=== PATIENT | female | born 1940 | race Caucasian/White ===

== ENCOUNTER 2016-11-06 15:51 | Inpatient (IN) | payer OTHER, MEDICARE ==
[~2016-11-06] VITALS: Ht 162.6 cm; Wt 112.9 kg
[~2016-11-06 15:51] MED LIST: ACAR25TA PO; ASPI-232 PO; ASPI1TAB4 PO; ATOR-22 PO; CHOL1CAP57 PO; CRAN1TAB6 PO; CTP1X PO; DOCU100C PO; FURO40TA3 PO; GLIM1TAB2 PO; GLUCTAB7 PO; LEVO1TAB PO; NRN/300 PO; POTA75TA2 PO; RANI1TAB77 PO; SITA50TA5 PO
[2016-11-06] MEDS ORDERED: ACETAMINOPHEN 500 MG TAB PO STA (16:00)
--- NOTE | 2016-11-06 16:07 | EMERGENCY ROOM VISIT NOTE ---
History Report prepared by Simon: Kingston Hays Under the Supervision of: Dr. Ben Pardo M.D. First contact with patient: 15:57 Chief Complaint: WEAKNESS Stated Complaint: WEAKNESS History of Present Illness The patient is a 75 year old female who presents to the Emergency Room with complaints of persistent weakness that started prior to arrival today. Per the patient's family, the patient was shaking the whole time they were eating at [employer]. The patient's legs then gave out, and [employer] called an ambulance. Per EMS, the patient had a fever. The patient also complains of some chest pain, tiredness, a cold feeling, and a runny nose. The patient says she has felt good the past couple days. She does not usually shake. The patient is not on oxygen at home. She denies loss of consciousness, a cough, headache, urinary burning, or recent diarrhea. There has not been anyone else sick at home. The patient took Aspirin today. Source of History: patient, family, EMS Onset: Prior to arrival today Position: other (global - weakness) Timing: other (persistent) Associated Symptoms: + chest pain, + fatigue, No LOC, No cough, No diarrhea , No headache, No urinary symptoms Note: Associated symptoms: Shaking, legs gave out. Cold feeling, runny nose. Review of Systems See HPI for pertinent positives & negatives. A total of 10 systems reviewed and were otherwise negative. Family History No pertinent family history Social History Smoking Status: Never Smoker Marital Status: Housing Status: lives with family Occupation Status: retired Current/Historical Medications Scheduled Acarbose (Precose), 25 MG PO TID Aspirin (Aspirin Ec), 81 MG PO DAILY Atorvastatin (Lipitor), 40 MG PO DAILY Cholecalciferol (Vitamin D-3), Unknown Dose PO DAILY Clonidine Hcl (Catapres), 0.2 MG PO BID Cyanocobalamin (Vitamin B-12), Unknown Dose PO DAILY Docusate Sodium (Stool Softener), 10 MG PO DAILY Ferrous Fumarate (Iron), 65 MG PO DAILY Glipizide (Glucotrol), 5 MG PO DAILY Levothyroxine Sodium (Synthroid), 100 MCG PO DAILY Potassium Ext Rel (Klor-Con), 20 MEQ PO BID Ranitidine Hcl (Zantac), 150 MG PO BID Sitagliptin-Metformin Hcl (Janumet), 1 TAB PO BID Valsartan (Diovan), 160 MG PO DAILY [metoprolol ], 25 MG PO BID Allergies Coded Allergies: Amoxicillin (Verified Allergy, Unknown, UNKNOWN, 11/06/16) unsure if allergic, unable to verify with pt, verified with daughter Physical Exam Vital Signs Date Time Temp Pulse Resp B/P Pulse Ox O2 Delivery O2 Flow Rate FiO2 11/06/16 20:20 81 22 118/59 92 Room Air 11/06/16 18:25 95 20 142/69 93 Room Air 11/06/16 16:32 39.8 11/06/16 16:04 36.8 101 22 136/81 95 Room Air Physical Exam GENERAL: Patient is weak appearing and has tremors. HEENT: No acute trauma, normocephalic atraumatic, mucous membranes moist, no nasal congestion, no scleral icterus. NECK: No stridor, no adenopathy, no meningismus, trachea is midline. LUNGS: No dyspnea. Mild crackles at bases of lungs. No wheeze, no rhonchi. HEART: Regular rate and rhythm. No murmurs, rubs, gallops appreciated. ABDOMEN: Soft, nontender, bowel sounds positive, no masses appreciated, no peritonitis. BACK: No midline tenderness, no CVA tenderness EXTREMITIES: Normal motion all extremities, no cyanosis, no edema. NEUROLOGIC: Alert and oriented, no acute motor or sensory deficits, no focal weakness, cranial nerves grossly intact. SKIN: No rash, no jaundice, no diaphoresis. Warm to touch. Medical Decision & Procedures ER Provider Diagnostic Interpretation: X ray results are stated below per my interpretation and the radiologist's interpretation. CHEST ONE VIEW PORTABLE CLINICAL HISTORY: fever cough COMPARISON STUDY: 11/07/2013 FINDINGS: Congestive heart failure. Moderate cardiomegaly. Prior median sternotomy. Prominent pulmonary vasculature. IMPRESSION: Congestive heart failure Electronically signed by: Eloy Britton M.D. 11/06/2016 4:55 PM Dictated Date/Time: 11/06/2016 4:54 PM Laboratory Results 11/06/16 17:14 Red Blood Count 3.48, Mean Corpuscular Volume 91.7, Mean Corpuscular Hemoglobin 30.5, Mean Corpuscular Hemoglobin Concent 33.2, Mean Platelet Volume 9.6, Neutrophils (%) (Auto) 90.4, Lymphocytes (%) (Auto) 3.3, Monocytes (%) (Auto) 5.3, Eosinophils (%) (Auto) 0.7, Basophils (%) (Auto) 0.1, Neutrophils # (Auto) 11.10, Lymphocytes # (Auto) 0.41, Monocytes # (Auto) 0.65, Eosinophils # (Auto) 0.08, Basophils # (Auto) 0.01 11/06/16 17:14 Test 11/06/16 17:14 11/06/16 18:48 White Blood Count 12.27 K/uL (4.8-10.8) Red Blood Count 3.48 M/uL (4.2-5.4) Hemoglobin 10.6 g/dL (12.0-16.0) Hematocrit 31.9 % (37-47) Mean Corpuscular Volume 91.7 fL (80-100) Mean Corpuscular Hemoglobin 30.5 pg (25-34) Mean Corpuscular Hemoglobin Concent 33.2 g/dl (32-36) Platelet Count 192 K/uL (130-400) Mean Platelet Volume 9.6 fL (7.4-10.4) Neutrophils (%) (Auto) 90.4 % Lymphocytes (%) (Auto) 3.3 % Monocytes (%) (Auto) 5.3 % Eosinophils (%) (Auto) 0.7 % Basophils (%) (Auto) 0.1 % Neutrophils # (Auto) 11.10 K/uL (1.4-6.5) Lymphocytes # (Auto) 0.41 K/uL (1.2-3.4) Monocytes # (Auto) 0.65 K/uL (0.11-0.59) Eosinophils # (Auto) 0.08 K/uL (0-0.5) Basophils # (Auto) 0.01 K/uL (0-0.2) RDW Standard Deviation 46.3 fL (36.4-46.3) RDW Coefficient of Variation 13.9 % (11.5-14.5) Immature Granulocyte % (Auto) 0.2 % Immature Granulocyte # (Auto) 0.02 K/uL (0.00-0.02) Anion Gap 12.0 mmol/L (3-11) Est Creatinine Clear Calc Drug Dose 27.3 ml/min Estimated GFR () 23.5 Estimated GFR (Non- 20.3 BUN/Creatinine Ratio 22.0 (10-20) Bedside Lactic Acid Venous 1.44 mmol/L (0.90-1.70) Calcium Level 9.6 mg/dl (8.5-10.1) Magnesium Level 1.8 mg/dl (1.8-2.4) Total Bilirubin 0.4 mg/dl (0.2-1) Direct Bilirubin 0.2 mg/dl (0-0.2) Aspartate Amino Transf (AST/SGOT) 60 U/L (15-37) Alanine Aminotransferase (ALT/SGPT) 63 U/L (12-78) Alkaline Phosphatase 127 U/L (45-117) Total Creatine Kinase 46 U/L (26-192) Creatine Kinase MB < 0.5 ng/ml (0.5-3.6) Creatine Kinase MB Ratio (0-3.0) Troponin I < 0.015 ng/ml (0-0.045) Total Protein 7.9 gm/dl (6.4-8.2) Albumin 3.1 gm/dl (3.4-5.0) Urine Color YELLOW Urine Appearance CLOUDY (CLEAR) Urine pH 5.0 (4.5-7.5) Urine Specific [place] 1.011 (1.000-1.030) Urine Protein TRACE (NEG) Urine Glucose (UA) NEG (NEG) Urine Ketones NEG (NEG) Urine Occult Blood 3+ (NEG) Urine Nitrite NEG (NEG) Urine Bilirubin NEG (NEG) Urine Urobilinogen NEG (NEG) Urine Leukocyte Esterase LARGE (NEG) Urine WBC (Auto) >30 /hpf (0-5) Urine RBC (Auto) 10-30 /hpf (0-4) Urine Hyaline Casts (Auto) 1-5 /lpf (0-5) Urine Epithelial Cells (Auto) 0-5 /lpf (0-5) Urine Bacteria (Auto) 1+ (NEG) Urine Yeast (Auto) (NONE PRSENT) Laboratory results as reviewed by me. Medications Administered Medications (Trade) Dose Ordered Sig/Mc Route Start Time Stop Time Status Last Admin Dose Admin Acetaminophen (Tylenol Tab) 1,000 mg NOW STAT PO 11/06/16 16:00 11/06/16 16:02 DC 11/06/16 18:23 1,000 MG Cefixime (Suprax Tab) 400 mg NOW STAT PO 11/06/16 19:36 11/06/16 19:38 DC 11/06/16 20:27 400 MG ECG Indication: weakness Rate (beats per minute): 98 Rhythm: normal sinus Findings: no ectopy, other (nonspecific ST depressions) ED Course 1557: The patient was evaluated in room B11B. A complete history and physical exam was performed. 1600: Ordered Tylenol Tab 1000 mg PO. 1700: No IV's or blood work have been obtained yet. 174: They are still trying to get IV access. I reevaluated the patient and she is feeling alright. 1803: I reevaluated the patient and she is too weak to even sit up and she is unable to urinate. 1925: I reevaluated the patient and he is feeling alright but is too weak to sit up. The patient verbally expressed understanding and agreement of the treatment plan. The patient will be evaluated for further treatment. 6: Ordered Suprax Tab 400 mg PO. Medical Decision Differential: Sepsis, Infectious (UTI/Pneumonia/Meningitis/etc), Metabolic/ Electrolyte Abnormality, Cardiac, Hepatic, Endocrine, Toxicologic, Neurologic, amongst other pathologies entertained. 75 yr old female arrives for evaluation of generalized weakness and fever. She denies any significant symptoms other than feeling weak. Mildly tachycardic initially with normal BP. Lactic acid normal though cultures sent. She is morbidly obese and even after multiple attempts by IV team we only obtained IV access that works with push meds, ie can not run continuous fluids through it. She is stable, no acutely septic. Labs reveal acute renal insufficiency. UA clearly infected. She is tolerating PO without any difficulty thus seems reasonable treating with PO meds and PO fluids rather than take risk of placing Central Line at this time (was discussed with patient/family). I made it clear she may require line if worsening or other findings but for now we will try to hold off. Given level of weakness she has she will need to come in for further monitoring. Impression Primary Impression: UTI (urinary tract infection) Additional Impressions: Renal insufficiency Generalized weakness Scribe Attestation The scribe's documentation has been prepared under my direction and personally reviewed by me in its entirety. I confirm that the note above accurately reflects all work, treatment, procedures, and medical decision making performed by me. Departure Information Dispostion Being Evaluated By Hospitalist Referrals EDWARD MENON PA-C (PCP) Patient Instructions My [facility] Problem Qualifiers Primary Impression: UTI (urinary tract infection) Urinary tract infection type: acute cystitis Hematuria presence: without hematuria Qualified Codes: N30.00 - Acute cystitis without hematuria
[2016-11-06] MEDS ORDERED: RANI150T3 PO (16:50)
[2016-11-06] MEDS ORDERED: SITA50TA5 PO (16:50)
[2016-11-06] MEDS ORDERED: ACAR25TA PO (16:50)
[2016-11-06] MEDS ORDERED: DVN/160 PO (16:50)
[2016-11-06] MEDS ORDERED: GLIP5TAB3 PO (16:50)
[2016-11-06] MEDS ORDERED: metoprolol PO (16:50)
[2016-11-06] MEDS ORDERED: FERR18TA2 PO (16:50)
[2016-11-06] MEDS ORDERED: ATOR-24 PO (16:50)
[2016-11-06] MEDS ORDERED: POTA20TA16 PO (16:50)
[2016-11-06] MEDS ORDERED: CLON0.2T PO (16:50)
[2016-11-06] MEDS ORDERED: DOCU100C PO (16:50)
[2016-11-06] MEDS ORDERED: CYAN100T PO (16:50)
[2016-11-06] MEDS ORDERED: CHOL1TAB PO (16:50)
[2016-11-06] MEDS ORDERED: ASPI81TA28 PO (16:50)
[2016-11-06] MEDS ORDERED: LEVO100T PO (16:51)
--- NOTE | 2016-11-06 16:57 | DIAGNOSTIC IMAGING REPORT ---
CHEST ONE VIEW PORTABLE CLINICAL HISTORY: fever cough COMPARISON STUDY: 11/07/2013 FINDINGS: Congestive heart failure. Moderate cardiomegaly. Prior median sternotomy. Prominent pulmonary vasculature. IMPRESSION: Congestive heart failure Electronically signed by: Eloy Britton M.D. 11/06/2016 4:55 PM Dictated Date/Time: 11/06/2016 4:54 PM
[2016-11-06 17:35] LABS: HEMATOCRIT 31.9 % (37-47); MEAN CELL VOLUME 91.7 fL (80-100); MEAN CORPUSCULAR HEMOGLOBIN 30.5 pg (25-34); MEAN CORPUSCULAR HGB CONC 33.2 g/dl (32-36); MEAN PLATELET VOLUME 9.6 fL (7.4-10.4); PLATELET COUNT 192 K/uL (130-400); RED BLOOD COUNT 3.48 M/uL (4.2-5.4); WHITE BLOOD COUNT 12.27 K/uL (4.8-10.8)
[2016-11-06 17:49] LABS: ALT/SGPT 63 U/L (12-78); BLOOD UREA NITROGEN 51 mg/dl (7-18); CALCIUM 9.6 mg/dl (8.5-10.1); CARBON DIOXIDE 18 mmol/L (21-32); CHLORIDE 107 mmol/L (98-107); GLUCOSE 115 mg/dl (70-99); MAGNESIUM 1.8 mg/dl (1.8-2.4); POTASSIUM 5.2 mmol/L (3.5-5.1); SODIUM 137 mmol/L (136-145)
[2016-11-06 17:51] LABS: BASO % 0.1 %; BASO ABS # 0.01 K/uL (0-0.2); COMPLETE YES; EOS % 0.7 %; IG% 0.2 %; LYMPH % 3.3 %; LYMPH ABS # 0.41 K/uL (1.2-3.4); MONO % 5.3 %; NEUT % 90.4 %
[2016-11-06 17:54] LABS: ALKALINE PHOSPHATASE 127 U/L (45-117); AST/SGOT 60 U/L (15-37)
[2016-11-06] MEDS ORDERED: ACETAMINOPHEN 500 MG TAB PO ONE (18:19)
[2016-11-06 19:04] LABS: URINE APPEARANCE CLOUDY (CLEAR); URINE BILIRUBIN NEG (NEG); URINE COLOR YELLOW; URINE EPITHELIAL CELL AUTO 0-5 /lpf (0-5); URINE NITRITE NEG (NEG); URINE SPECIFIC GRAVITY 1.011 (1.000-1.030); UROBILINOGEN NEG (NEG); ZZURINE CULT IF INDIC CATH YES
[2016-11-06 19:05] LABS: MANUAL MICROSCOPIC REQUIRED? NO; REVIEW REQ? YES
[2016-11-06] MEDS ORDERED: CEFIXIME TAB 400 MG CAP PO STA (19:36)
[2016-11-06] MEDS ORDERED: ACETAMINOPHEN 325 MG TAB PO PRN (21:30)
[2016-11-06] MEDS ORDERED: ALUMINUM/MAGNESIUM/SIMETH (MAALOX MAX) 30 ML UDC PO PRN (21:30)
[2016-11-06] MEDS ORDERED: ONDANSETRON INJ 2 MG/ML 2 ML VIAL IV PRN (21:30)
[2016-11-06] MEDS ORDERED: NITROGLYCERIN 0.4 MG SL PER TAB CHARGE SL PRN (21:30)
[2016-11-06] MEDS ORDERED: PIPERACILL/TAZOBAC IV 3.375 GM in DEXTROSE 5% 100ML 100 ML IV SCH (21:30)
[2016-11-06] MEDS ORDERED: MAGNESIUM HYDROXIDE SUSP 30 ML UDC PO PRN (21:30)
--- NOTE | 2016-11-06 22:25 | DIAGNOSTIC IMAGING REPORT ---
HEAD CT NONCONTRAST CT DOSE: 537.48 mGy.cm HISTORY: Mental status change LOWER EXTREMITY WEAKNESS TECHNIQUE: Multiaxial CT images of the head were performed without the use of intravenous contrast. Comparison: None. Findings: The paranasal sinuses and mastoid air cells are clear. The calvarium and skull base are intact. The ventricles and sulci are within normal limits. There is no mass, hematoma, midline shift, or acute infarct. Probable masslike process in the region of the sella and sphenoid sinus. Transaxial measurements are 2.6 x 2.1 cm. Impression: 1. 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 2. Hemorrhagic brain with attention to the pituitary and parasellar region is suggested. 3. Study of brain is otherwise negative. 4. Mild chronic small vessel change Electronically signed by: Eloy Britton M.D. 11/06/2016 10:23 PM Dictated Date/Time: 11/06/2016 10:21 PM
--- NOTE | 2016-11-06 22:56 | HISTORY & PHYSICAL EXAMINATION ---
DATE OF ADMISSION: 11/06/2016 CHIEF COMPLAINT: Weakness of the legs and shakiness and chills. HISTORY OF PRESENT ILLNESS: This is a 75-year-old female with past medical history significant for CAD, status post stent, diabetes, hypertension, hypothyroidism, presents with weakness in lower extremities, shakiness, chills. The patient says she is having chills for the last few days, but today while they were having dinner at [employer], she suddenly became shaky and also weakness in the lower extremities and she was brought into the ER. She has had temp spike in the ER and mildly tachycardic, currently resting comfortably and blood pressure stable at this time. She was a hard stick and they could not get the IV line but they are trying again. The patient denies any chest pain, no shortness of breath, no cough, no headaches, no blurred vision, no nausea, no vomiting, no abdominal pain. Usually constipated. Normal bladder movements. Appetite is okay. She lives with her daughter and walks with a cane at home. ALLERGIES: TO AMOXICILLIN. PAST MEDICAL HISTORY: As mentioned above. PAST SURGICAL HISTORY: CABG, back surgeries, hysterectomy. MEDICATIONS AT HOME: The patient is on acarbose 25 mg p.o. t.i.d., vitamin D and vitamin B12, glipizide 5 mg p.o. daily, potassium extended release 20 mEq p.o. b.i.d., Diovan 160 mg p.o. daily, Janumet 1 tablet p.o. b.i.d., aspirin 81 mg p.o. daily, atorvastatin 40 mg p.o. daily, clonidine 0.2 mg p.o. b.i.d., Colace 100 mg p.o. daily, ferrous fumarate 65 mg p.o. daily, levothyroxine 100 mcg p.o. daily, Zantac 150 mg p.o. b.i.d., metoprolol 25 mg p.o. b.i.d. FAMILY HISTORY: Significant for father and mother had diabetes. Father had strokes and pacemaker. SOCIAL HISTORY: No smoking history. No alcohol history. Lives with her daughter. REVIEW OF SYMPTOMS: As per HPI. Rest of the review of symptoms negative. PHYSICAL EXAMINATION: GENERAL: The patient is morbidly obese, not in distress. VITAL SIGNS: T-max 39.8, pulse 101-81, respiratory rate 22, blood pressure 118/59, oxygen 92% room air. HEENT: No pallor, no icterus. Pupils equal, round and reactive to light. NECK: No JVD, no neck masses, no carotid bruits. CARDIOVASCULAR: S1, S2 heard. Regular rate and rhythm. No murmur, no gallop. RESPIRATORY: Clear to auscultation. No accessory muscle use. No wheezing, no crackles. ABDOMEN: Soft, bowel sounds present. Nontender. No distention. CENTRAL NERVOUS SYSTEM: Cranial nerves II-XII grossly intact. Nonfocal. EXTREMITIES: Pedal edema +2 present. LABORATORIES: Sodium 137, potassium 5.2, chloride 107, BUN 51, creatinine 2.3, serum glucose 115, point of care lactic acid 1.44, calcium 9.6, magnesium 1.8, total bilirubin 0.4, direct bilirubin 0.2, AST 60, ALT 63, alkaline phosphorus 127. Troponin I less than 0.015. WBC 12.2, hemoglobin 10.6, hematocrit 31.9, platelets 192. Urinalysis positive for leukocyte esterase. Chest x-ray showed mild congestive changes. EKG: Normal sinus rhythm with a rate of 98, no acute ST changes seen. ASSESSMENT AND PLAN: This is a 75-year-old female who presents with weakness in lower extremities, possible urinary tract infection. 1. Urinary tract infection. Lower extremity weakness could most likely be from the urinary tract infection. She has a history of recurrent urinary tract infections in the past. We will follow the blood cultures and urine cultures and place her on IV Invanz for now until the cultures are back. 2. Lower extremity weakness, most likely secondary to above, but we will also get a CT of the head to rule out other causes. PT/OT when the patient is more stable. 3. Diabetes. The patient is on acarbose, glipizide and Janumet which we will hold. We will place her on insulin sliding scale for now. We will check HbA1c level. If HbA1c level is more than 9, we will get diabetic teaching and discharge her on insulin. 4. Acute renal failure. We do not know the baseline creatinine. We will get the records from the PCP's office. We will hold the valsartan and follow the labs in a.m. 5. Hyperkalemia with potassium of 5.2. We will give Kayexalate and consult nephrology in a.m. The patient is also on potassium supplements for low potassium as per patient which we are holding for now. 6. History of coronary artery disease, status post coronary artery bypass graft. Continue aspirin, Lipitor, beta clare. Currently stable. 7 Lower extremity edema, this is chronic, but we will follow the echo for now. 8. History of hypertension. Continue clonidine and metoprolol with holding parameters and holding valsartan for renal failure.Monitor the blood pressure. 9. Deep vein thrombosis prophylaxis. Heparin subcu. 9. Disposition. Admit to tele for close watch for any volume overload or any sepsis, and if stable, transfer to medical floor in a.m. Level 1 full code. MTDD
[2016-11-06 23:30] VITALS: BP 145/59; PULSE 79; TEMP 36.5; O2SAT 91; Ht 162.6 cm; Wt 112.9 kg
[2016-11-06] MEDS ORDERED: SODIUM POLYST. SULF SUSP 15G/60ML PO STA (23:33)
[2016-11-06] MEDS ORDERED: DEXTROSE 50% 50 ML SYR IV PRN (23:45)
[2016-11-06] MEDS ORDERED: GLUCOSE 40% GEL 15 GM TUBE PO PRN (23:45)
[2016-11-06] MEDS ORDERED: GLUCOSE 10 TABS/TUBE PO PRN (23:45)
[2016-11-06] MEDS ORDERED: GLUCAGON FOR INJ 1 MG VIAL SQ PRN (23:45)
[2016-11-07 03:15] VITALS: BP 117/54; PULSE 72; TEMP 36.4; O2SAT 94
[2016-11-07 04:00] VITALS: O2SAT 92
[2016-11-07 05:55] LABS: HEMATOCRIT 30.2 % (37-47); MEAN CELL VOLUME 91.5 fL (80-100); MEAN CORPUSCULAR HEMOGLOBIN 30.3 pg (25-34); MEAN CORPUSCULAR HGB CONC 33.1 g/dl (32-36); MEAN PLATELET VOLUME 9.1 fL (7.4-10.4); PLATELET COUNT 163 K/uL (130-400); WHITE BLOOD COUNT 9.54 K/uL (4.8-10.8)
[2016-11-07] MEDS: ERTAPENEM IV 1 GM in SODIUM CHLOR 0.9% AD-VAN 50ML 50 ML IV SCH (06:00)
[2016-11-07] MEDS: LEVOTHYROXINE 100 MCG TAB PO SCH (06:00)
[2016-11-07 06:19] LABS: BUN/CREATININE RATIO 22.5 (10-20); CALCIUM 9.1 mg/dl (8.5-10.1); CREATININE 2.2 mg/dl (0.60-1.20); POTASSIUM 4.5 mmol/L (3.5-5.1)
[2016-11-07 06:22] LABS: BASO % 0.2 %; BASO ABS # 0.02 K/uL (0-0.2); COMPLETE YES; EOS % 0.7 %; IG% 0.1 %; LYMPH % 10.3 %; LYMPH ABS # 0.98 K/uL (1.2-3.4); MONO % 7.8 %; NEUT % 80.9 %
--- NOTE | 2016-11-07 07:14 | NEPHROLOGY CONSULTATION ---
DATE OF CONSULTATION: 11/07/2016 ATTENDING OF RECORD: Dr. Johns. REASON FOR CONSULTATION: SHAYY. HISTORY OF PRESENT ILLNESS: This is a 75-year-old female who has underlying diabetes and hypertension as well as heart disease requiring a stent in the past, who has not followed with nephrology in the past and was not aware of any issues with her kidneys before. Did suffer from chronic urinary tract infections and was on chronic prophylactic antibiotics which were working well. The patient states for the past week she has been weak with worsening tremors, fevers and chills. Denies any dysuria or hematuria. Denies any chest pain or shortness of breath. The patient was still eating and drinking well and was taking 2 ibuprofen a day secondary to her generalized weakness. The patient was having dinner with her friends locally and secondary to not feeling well was brought to the Emergency Room for further evaluation. The patient was found to have a creatinine of 2.3, a potassium level of 5.2. Blood pressure was good in the 130s/80s; however, the patient did have a temperature of 39.8. The patient was started on IV fluids as well as antibiotics. This morning the patient feels well. Appetite has always been good. Repeat labs are currently pending. PAST MEDICAL HISTORY: Diabetes, hypertension, heart disease, hypothyroidism. PAST SURGICAL HISTORY: Back surgery done here at [facility], hysterectomy, and bypass surgery. MEDICATIONS AT HOME: Were significant for potassium 20 mEq b.i.d., Diovan 160 mg daily, clonidine 0.2 b.i.d., iron, metoprolol 25 p.o. b.i.d. FAMILY HISTORY: Significant for diabetes. SOCIAL HISTORY: No tobacco, no alcohol, no drugs. Lives with daughter. REVIEW OF SYSTEMS: Positive weakness. Positive fevers and chills. Positive balance issues. No blurry vision, no dysphasia. No dysuria or hematuria. No chest pain or shortness of breath. No nausea or vomiting. No anorexia. No rash or itching. All other review of systems otherwise negative. Does suffer from chronic back pain. CURRENT MEDICATIONS: Aspirin 81 mg a day, Lipitor 40 mg daily, Colace 10 mg p.o. daily, Zantac 150 mg p.o. b.i.d., clonidine 0.2 mg p.o. b.i.d., Lopressor 25 mg p.o. b.i.d., sliding scale insulin, heparin 5000 units subcu q. 8, Synthroid 100 mcg daily, ertapenem 1 gram IV daily, normal saline at 50 mL an hour, did receive 1 dose of Kayexalate last night. PHYSICAL EXAMINATION: VITAL SIGNS: Temperature 36.4, pulse 72, respiratory rate is 18, blood pressure 117/54, satting 92% on room air. GENERAL: Awake, alert, oriented x3, obese. EYES: No scleral icterus. ENT: Moist mucous membranes. NECK: Supple. PULMONARY: Clear to auscultation. CARDIAC: Regular rate and rhythm. ABDOMEN: Bowel sounds positive, soft, nontender. EXTREMITIES: No significant clubbing, cyanosis or edema. NEUROLOGICAL: Nonfocal. DERMATOLOGIC: No rash or ulcers noted. LABORATORIES: Pending for this morning; however, white count is back and is better compared to yesterday at 9 compared to 12, H\T\H 10 and 30, platelet count 163. Presentation labs from last night, sodium level 137, potassium 5.2, chloride is 107, bicarb is 18, BUN is 51, creatinine is 2.3, glucose 115, lactic acid 1.44, magnesium is 1.8, calcium 9.6, AST 60, ALT 63, albumin 3.1. INR is 1. UA with greater than 30 WBCs, 10-30 RBCs, 3+ blood, trace protein. Chest x-ray shows congestive failure, moderate cardiomegaly. Blood cultures and urine cultures are pending. ASSESSMENT AND PLAN: 1. Elevated creatinine of 2.3 on admission in the setting of urinary tract infection with fevers and NSAID use, unclear what her baseline creatinine is. Previously was here in 2013 for back surgery and at that time creatinine was around 1.3. The patient does have underlying diabetes and hypertension, does not smoke, so feel creatinine likely above true baseline. Agree with current plan of care, giving gentle hydration. Chest x-ray does show congestive heart failure. With the patient lying flat and not exhibiting any signs of significant shortness of breath, would continue the low rate of IV fluids and antibiotics for now and hope creatinine eventually improves; however, presentation may have been significant enough to cause an ATN like episode where her creatinine may worsen before it starts to improve. No indication for emergent dialysis at this time. 2. Hyperkalemia. Potassium level was 5.2 and has improved to 4.5 this morning in the setting of giving Kayexalate, holding potassium supplement, holding Diovan, and hydrating. Potassium levels should continue to improve throughout this hospitalization. So overall, the patient with morbid obesity, diabetes, hypertension and history of frequent urinary tract infections in the past, who is on chronic antibiotic prophylaxis per the patient, which was working well, however, presents with significant urinary tract infection with fevers, worsening potassium, and presumed worsening kidney function. Appears to be clinically improving with the low rate of IV fluids and appropriate antibiotics. We will have to monitor her volume status closely given the fact that the chest x-ray already shows signs of congestive heart failure, although oxygenating well at this point. I appreciate consultation. OTONIEL
[2016-11-07] MEDS: HEPARIN SOD 5000 UNIT/0.5 ML CARP SQ SCH ×3 (07:30→20:56)
--- NOTE | 2016-11-07 07:52 | DIAGNOSTIC IMAGING REPORT ---
CHEST ONE VIEW PORTABLE CLINICAL HISTORY: Congestion. COMPARISON STUDY: Chest radiograph November 06, 2016. FINDINGS: There are median sternotomy wires and clips from bypass grafting. No pneumothorax is present. Linear left midlung opacity is suggestive of atelectasis or scarring. Cardiomegaly is unchanged. Hazy left basilar opacity is unchanged. There is pulmonary vascular congestion without overt pulmonary edema. IMPRESSION: 1. Pulmonary vascular congestion without overt pulmonary edema. 2. Stable cardiomegaly. 3.Hazy and linear left mid and lower lung opacity. Atelectasis is favored. Electronically signed by: Glynn Coates M.D. 11/07/2016 7:50 AM Dictated Date/Time: 11/07/2016 7:48 AM
[2016-11-07 08:17] LABS: ESTIMATED AVERAGE GLUCOSE 154 mg/dl; HA1C FLAG Normal (Normal)
[2016-11-07 08:20] VITALS: BP 130/73; PULSE 80; TEMP 36.7; O2SAT 93
[2016-11-07] MEDS ORDERED: FERROUS FUMARATE 65 MG PO SCH (09:00)
[2016-11-07] MEDS ORDERED: METOPROLOL TARTRATE 25 MG TAB PO SCH (09:00)
[2016-11-07] MEDS: INSULIN ASPART 100 UNITS/ML 3 ML PEN SC SCH ×4 (09:30→20:56)
[2016-11-07] MEDS: RANITIDINE HCL 150 MG TAB PO SCH ×2 (09:36→20:48)
[2016-11-07] MEDS: ATORVASTATIN 40 MG TAB PO SCH (09:36)
[2016-11-07] MEDS: ASPIRIN 81 MG ECTAB PO SCH (09:36)
[2016-11-07] MEDS: CLONIDINE HCL 0.1 MG TAB PO SCH ×2 (09:36→20:48)
[2016-11-07] MEDS: DOCUSATE SODIUM 100 MG CAP PO SCH (09:36)
[2016-11-07] MEDS: METOPROLOL TARTRATE 25 MG TAB PO SCH ×2 (09:37→20:48)
[2016-11-07] MEDS ORDERED: PERFLUTREN LIPID MICROSPHERE (DEFINITY) IV ONE (10:49)
--- NOTE | 2016-11-07 12:43 | Progress Note ---
Internal Med Progress Note Date of Service: Nov 07, 2016. Provider Documentation: SUBJECTIVE: Seen and examined at bedside. States her weakness has improved. Had diarrhea overnight secondary to Kayexalate. Denies any chest pain, SOB, burning micturition. No other complaints. OBJECTIVE: Vital Signs-as noted below Physical Exam: General Appearance:Obese, no apparent distress Head: normocephalic, Atraumatic Eyes: normal inspection, EOMI, PERRLA, Anicteric Neck: supple, no JVD, Trachea midline Respiratory/Chest: Normal breath sounds, CTA, No accessory muscle use Cardiovascular: S1, S2, No murmur Abdomen/GI:Soft, Non tender, Bowel sounds present Extremities/Musculoskelatal:normal inspection, no edema Neurologic/Psych:AAOX3, grossly no focal neurological deficits Skin: normal color, warm Lab data as noted below. ASSESSMENT & PLAN: Patient is a 75 yr old female presented with weakness in lower extremities UTI: H/O recurrent UTIs Continue IV Invanz Gentle IV fluids given CXR suggestive of CHF Follow up cultures Lower Extremity weakness: Likely secondary to acute illness Improving clinically, no focal deficits PT/OT CT Head as below ? BACTEREMIA: 1/2 bottles positive for gram positive bacilli Continue IV antibiotics Repeat blood cultures Follow up ECHO Acute Renal Insufficiency: Unknown baseline Cr: Currently 2.2 Continue gentle IV fluids per Nephrology Monitor renal function Appreciate Nephrology input Hold Valsartan H/O CAD S/P CABG: Stable continue aspirin, Lipitor, beta clare. Lower extremity edema: chronic Follow up ECHO Hypertension: Continue clonidine and metoprolol Valsartan on hold monitor Hyperkalemia: Resolved S/P Kayexalate Monitor DM II: A1C:7.0 Continue ISS Hold oral diabetic meds Accu checks HYPOTHYROIDISM: Continue Levothyroxine DVT Px: Heparin SQ CODE STATUS: Full code PROCEDURES: CT Head: 1. 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 2. Hemorrhagic brain with attention to the pituitary and parasellar region is suggested. 3. Study of brain is otherwise negative. 4. Mild chronic small vessel change Vital Signs: Date Time Temp Pulse Resp B/P Pulse Ox O2 Delivery O2 Flow Rate FiO2 11/07/16 19:27 37.0 90 18 141/67 91 Room Air 11/07/16 16:00 Room Air 11/07/16 15:25 36.6 85 16 141/68 93 Room Air 11/07/16 12:00 Room Air 11/07/16 08:20 36.7 80 18 130/73 93 Room Air 11/07/16 08:00 Room Air 11/07/16 04:00 92 Room Air 11/07/16 03:15 36.4 72 18 117/54 94 Room Air 11/06/16 23:30 36.5 79 20 145/59 91 Room Air 11/06/16 22:48 73 20 116/56 95 Room Air 11/06/16 21:50 78 120/58 93 Room Air 11/06/16 20:20 81 22 118/59 92 Room Air Lab Results: Results Past 24 Hours Test 11/07/16 05:45 11/07/16 06:49 11/07/16 11:26 11/07/16 16:44 Range/Units White Blood Count 9.54 4.8-10.8 K/uL Red Blood Count 3.30 4.2-5.4 M/uL Hemoglobin 10.0 12.0-16.0 g/dL Hematocrit 30.2 37-47 % Mean Corpuscular Volume 91.5 80-100 fL Mean Corpuscular Hemoglobin 30.3 25-34 pg Mean Corpuscular Hemoglobin Concent 33.1 32-36 g/dl Platelet Count 163 130-400 K/uL Mean Platelet Volume 9.1 7.4-10.4 fL Neutrophils (%) (Auto) 80.9 % Lymphocytes (%) (Auto) 10.3 % Monocytes (%) (Auto) 7.8 % Eosinophils (%) (Auto) 0.7 % Basophils (%) (Auto) 0.2 % Neutrophils # (Auto) 7.72 1.4-6.5 K/uL Lymphocytes # (Auto) 0.98 1.2-3.4 K/uL Monocytes # (Auto) 0.74 0.11-0.59 K/uL Eosinophils # (Auto) 0.07 0-0.5 K/uL Basophils # (Auto) 0.02 0-0.2 K/uL RDW Standard Deviation 46.4 36.4-46.3 fL RDW Coefficient of Variation 13.7 11.5-14.5 % Immature Granulocyte % (Auto) 0.1 % Immature Granulocyte # (Auto) 0.01 0.00-0.02 K/uL Red Blood Cell Morphology Unremarkable Prothrombin Time 11.0 9.0-12.0 SECONDS Prothromb Time International Ratio 1.0 0.9-1.1 Sodium Level 141 136-145 mmol/L Potassium Level 4.5 3.5-5.1 mmol/L Chloride Level 110 98-107 mmol/L Carbon Dioxide Level 20 21-32 mmol/L Anion Gap 11.0 3-11 mmol/L Blood Urea Nitrogen 50 7-18 mg/dl Creatinine 2.20 0.60-1.20 mg/dl Est Creatinine Clear Calc Drug Dose 28.0 ml/min Estimated GFR () 24.8 Estimated GFR (Non- 21.4 BUN/Creatinine Ratio 22.5 10-20 Random Glucose 146 70-99 mg/dl Estimated Average Glucose 154 mg/dl Hemoglobin A1c 7.0 4.5-5.6 % Calcium Level 9.1 8.5-10.1 mg/dl Magnesium Level 2.0 1.8-2.4 mg/dl Bedside Glucose 155 135 120 70-90 mg/dl
--- NOTE | 2016-11-07 14:10 | ECHOCARDIOGRAM REPORT ---
*NOTICE TO RECEIVING [employer] This information is strictly Confidential and protected under [place] law. [place] law prohibits you from making any further disclosure of this information unless further disclosure is expressly permitted by the written consent of the person to whom it pertains or is authorized by law. A general authorization for the release of medical or other information is not sufficient for this purpose. Hospital accepts no responsibility if the information is made available to any other person, INCLUDING THE PATIENT. Interpretation Summary * Name: GAURAV DELUCA Study Date: 11/07/2016 10:20 AM BP: 117/54 mmHg * Patient Location: .2E\S\E206\S\1 HR: 85 * : 1940 (M/d/yyyy) Gender: Female Height: 64 in * Age: 75 yrs Ethnicity: [place] Weight: 262 lb * Ordering Physician: Patrice Palmer * Performed By: Olivia Cooper RDCS * * Reason For Study: Congestive heart failure * BSA: 2.2 m2 * -- Conclusions -- * The left ventricular wall motion is normal. * The LV Ejection Fraction = 60-65%. * The right ventricle is poorly visualized. * The tricuspid regurgitation envelope is insufficient to allow estimation of the pulmonary artery systolic pressure. Procedure Details * A complete two-dimensional transthoracic echocardiogram was performed (2D, M-mode, Doppler and color flow Doppler). * The study was technically difficult. * A contrast injection of Definity was performed to improve assessment of LV function. * Contrast was injected into an intravenous site in the right arm. * One vial of Definity ultrasound contrast was diluted in normal saline to a total volume of 10 ml. A total of '2' ml of solution was administered during imaging. * Lot # [id number] of Definity utilized for procedure. * Expiration date OCT 05. * The attending nurse who injected the contrast agent was Rosa Coppola RN. Left Ventricle * The left ventricle is normal in size. * There is normal left ventricular wall thickness. * Left ventricular systolic function is normal. * Ejection Fraction = 60-65%. * The left ventricular wall motion is normal. Right Ventricle * The right ventricle is poorly visualized. Atria * The left atrial size is normal. * Right atrial size is normal. * There is no evidence of atrial septal defect, but resolution does not allow assessment for a patent foramen ovale. Mitral Valve * The mitral valve is normal. * There is no mitral valve stenosis. * Significant mitral regurgitation is absent. Tricuspid Valve * The tricuspid valve is not well visualized. * There is no tricuspid stenosis. * Significant tricuspid regurgitation is absent. * The tricuspid regurgitation envelope is insufficient to allow estimation of the pulmonary artery systolic pressure. Aortic Valve * The aortic valve is trileaflet. * Aortic stenosis is absent. * There is no significant aortic regurgitation. Pulmonic Valve * The pulmonary valve is not well seen, but the Doppler examination is normal without significant regurgitation or stenosis. Great Vessels * The aortic root and proximal ascending aorta are normal sized. Pericardium/Pleural * There is no pericardial effusion. Great Vessels * Normal inferior vena cava diameter and respiratory variation suggests normal central venous pressure. * Normal inferior vena cava size and collapsability with sniff indicates a normal right atrial pressure of 3 mmHg Left Ventricular Diastolic Function * Diastolic dysfunction, Grade II (pseudonormalization pattern). MMode 2D Measurements and Calculations IVSd 1.0 cm LVIDd 4.6 cm LVIDs 2.8 cm LVPWd 0.99 cm IVS/LVPW 1.0 FS 37.9 % EDV(Teich) 96.7 ml ESV(Teich) 30.8 ml EF(Teich) 68.1 % EDV(cubed) 96.5 ml ESV(cubed) 23.1 ml EF(cubed) 76.1 % LV mass(C)d 160.9 grams LV mass(C)dI 73.3 grams/m\S\2 CO(Teich) 5.7 l/min CI(Teich) 2.6 l/min/m\S\2 SV(Teich) 65.9 ml SI(Teich) 30.0 ml/m\S\2 CO(cubed) 6.3 l/min CI(cubed) 2.9 l/min/m\S\2 SV(cubed) 73.4 ml SI(cubed) 33.5 ml/m\S\2 Ao root diam 3.0 cm Ao root area 7.0 cm\S\2 LA dimension 3.7 cm asc Aorta Diam 3.0 cm LA/Ao 1.2 LVOT diam 2.0 cm LVOT area 3.3 cm\S\2 LVAd ap4 31.0 cm\S\2 LVLd ap4 8.3 cm EDV(MOD-sp4) 95.0 ml LVAs ap4 15.5 cm\S\2 LVLs ap4 6.9 cm ESV(MOD-sp4) 29.0 ml EF(MOD-sp4) 69.5 % LVAd ap2 24.4 cm\S\2 LVLd ap2 7.6 cm EDV(MOD-sp2) 64.0 ml LVAs ap2 11.2 cm\S\2 LVLs ap2 6.0 cm ESV(MOD-sp2) 17.0 ml EF(MOD-sp2) 73.4 % CO(MOD-sp4) 5.7 l/min CI(MOD-sp4) 2.6 l/min/m\S\2 SV(MOD-sp4) 66.0 ml SI(MOD-sp4) 30.1 ml/m\S\2 CO(MOD-sp2) 4.0 l/min CI(MOD-sp2) 1.8 l/min/m\S\2 SV(MOD-sp2) 47.0 ml SI(MOD-sp2) 21.4 ml/m\S\2 Doppler Measurements and Calculations MV E max eladia 134.3 cm/sec MV A max eladia 100.2 cm/sec MV E/A 1.3 MV V2 max 158.7 cm/sec MV max PG 10.1 mmHg MV V2 mean 90.5 cm/sec MV mean PG 3.9 mmHg MV V2 VTI 37.0 cm MV dec time 0.17 sec Ao V2 max 140.0 cm/sec Ao max PG 7.8 mmHg Ao max PG (full) 3.5 mmHg ANA(V,A) 2.4 cm\S\2 ANA(V,D) 2.4 cm\S\2 LV V1 max PG 4.4 mmHg LV V1 max 104.6 cm/sec PA V2 max 99.1 cm/sec PA max PG 3.9 mmHg PA acc slope 576.7 cm/sec\S\2 PA acc time 0.12 sec PA pr(Accel) 23.5 mmHg
[2016-11-07 15:25] VITALS: BP 141/68; PULSE 85; TEMP 36.6; O2SAT 93
[2016-11-07 19:27] VITALS: BP 141/67; PULSE 90; TEMP 37; O2SAT 91
[2016-11-07] MEDS: SODIUM CHLORIDE 0.9% 1000ML 1,000 ML IV SCH ×2 (20:49)
[2016-11-07 23:38] VITALS: BP 145/60; PULSE 80; TEMP 36.6; O2SAT 93
[2016-11-08] VITALS (8 sets, daily range): BP systolic 114–171; BP diastolic 57–84; PULSE 65–95; TEMP 36.2–36.7; O2SAT 94–98
[2016-11-08 05:43] LABS: BASO % 0.3 %; BASO ABS # 0.02 K/uL (0-0.2); COMPLETE YES; EOS % 3.9 %; HEMATOCRIT 29.4 % (37-47); IG% 0.3 %; LYMPH % 13.6 %; LYMPH ABS # 0.91 K/uL (1.2-3.4); MEAN CELL VOLUME 93.9 fL (80-100); MEAN PLATELET VOLUME 9.5 fL (7.4-10.4); MONO % 13.9 %; PLATELET COUNT 172 K/uL (130-400); RED BLOOD COUNT 3.13 M/uL (4.2-5.4)
[2016-11-08 06:18] LABS: BUN/CREATININE RATIO 21.3 (10-20); CALCIUM 8.4 mg/dl (8.5-10.1); CREATININE 1.8 mg/dl (0.60-1.20); MAGNESIUM 1.8 mg/dl (1.8-2.4); POTASSIUM 3.9 mmol/L (3.5-5.1)
[2016-11-08] MEDS: LEVOTHYROXINE 100 MCG TAB PO SCH (06:21)
[2016-11-08] MEDS: ERTAPENEM IV 1 GM in SODIUM CHLOR 0.9% AD-VAN 50ML 50 ML IV SCH (06:21)
[2016-11-08] MEDS: HEPARIN SOD 5000 UNIT/0.5 ML CARP SQ SCH ×3 (06:22→21:30)
--- NOTE | 2016-11-08 06:46 | Nephrology Progress Note ---
Nephrology Progress Note Date of Service: Nov 08, 2016. Subjective 75 yo female with uti/cyn/generalized weakness. clinically improving. appetite is good. no overt sob. urinating well. pt inquiring about going home. Objective Date Time Temp Pulse Resp B/P Pulse Ox O2 Delivery O2 Flow Rate FiO2 11/08/16 04:00 Room Air 11/08/16 03:25 36.6 80 17 149/63 94 Room Air 11/08/16 00:10 Room Air 11/07/16 23:38 36.6 80 17 145/60 93 Room Air 11/07/16 20:00 Room Air 11/07/16 19:27 37.0 90 18 141/67 91 Room Air 11/07/16 16:00 Room Air 11/07/16 15:25 36.6 85 16 141/68 93 Room Air 11/07/16 12:00 Room Air 11/07/16 08:20 36.7 80 18 130/73 93 Room Air 11/07/16 08:00 Room Air Physical Exam: General-aaox3, obese Eyes-no scleral icterus ENT-mmm Neck-supple Lungs-slight end expiratory wheeze Heart-rrr Abdomen-bs+ s/nt/nd Extremities-mild edema Neuro-nonfocal Current Inpatient Medications Medications (Trade) Dose Ordered Sig/Mc Route Start Time Stop Time Status Last Admin Dose Admin Heparin Sodium (Porcine) 5000 unit 5,000 unit Q8 SQ 11/07/16 07:00 12/07/16 06:59 11/08/16 06:22 5,000 UNIT Sodium Chloride (Nss 1000ml) 1,000 ml @ 50 mls/hr Q20H IV 11/06/16 23:30 12/06/16 23:29 11/07/16 20:49 50 MLS/HR Acetaminophen (Tylenol Tab) 650 mg Q4H PRN PO 11/06/16 21:30 12/06/16 21:29 Al Hydrox/Mg Hydrox/Simethicone (Maalox Max Susp) 15 ml Q4H PRN PO 11/06/16 21:30 12/06/16 21:29 Magnesium Hydroxide (Milk Of Magnesia Susp) 30 ml Q12H PRN PO 11/06/16 21:30 12/06/16 21:29 Ondansetron HCl (Zofran Inj) 4 mg Q6H PRN IV 11/06/16 21:30 12/06/16 21:29 Nitroglycerin (Nitrostat Tab) 0.4 mg UD PRN SL 11/06/16 21:30 12/06/16 21:29 Aspirin (Ecotrin Tab) 81 mg DAILY PO 11/07/16 09:00 12/07/16 08:59 11/07/16 09:36 81 MG Atorvastatin Calcium (Lipitor Tab) 40 mg DAILY PO 11/07/16 09:00 12/07/16 08:59 11/07/16 09:36 40 MG Docusate Sodium (coLACE CAP) 10 mg DAILY PO 11/07/16 09:00 12/07/16 08:59 11/07/16 09:36 100 MG Levothyroxine Sodium (Synthroid Tab) 100 mcg DAILYBB PO 11/07/16 06:00 12/07/16 05:59 11/08/16 06:21 100 MCG Ranitidine HCl (zANTac TAB) 150 mg BID PO 11/07/16 09:00 12/07/16 08:59 11/07/16 20:48 150 MG Clonidine HCl (Catapres Tab) 0.2 mg BID PO 11/07/16 09:00 12/07/16 08:59 11/07/16 20:48 0.2 MG Insulin Aspart SLIDING SCALE G... ACHS SC 11/07/16 07:00 12/07/16 06:59 11/07/16 20:56 1 UNITS Ertapenem/Sodium Chloride (Invanz Iv/Nss Ad-Van 50ml) 50 ml @ 120 mls/hr Q24H IV 11/07/16 06:00 11/17/16 05:59 11/08/16 06:21 120 MLS/HR Glucose (Glucose 40% Gel) 15-30 GRAMS 15 GRAMS... UD PRN PO 11/06/16 23:45 12/06/16 23:44 Glucose (Glucose Chew Tab) 4-8 Tablets 4 Tabl... UD PRN PO 11/06/16 23:45 12/06/16 23:44 Dextrose (Dextrose 50% 50ML Syringe) 25-50ML OF 50% DW IV FOR... UD PRN IV 11/06/16 23:45 12/06/16 23:44 Glucagon (Glucagon Inj) 1 mg UD PRN SQ 11/06/16 23:45 12/06/16 23:44 Metoprolol Tartrate (Lopressor Tab) 25 mg BID PO 11/07/16 09:00 12/07/16 08:59 11/07/16 20:48 25 MG Last 24 Hours Test 11/07/16 06:49 11/07/16 11:26 11/07/16 16:44 11/07/16 20:20 Bedside Glucose 155 mg/dl 135 mg/dl 120 mg/dl 165 mg/dl Test 11/08/16 05:15 11/08/16 06:25 White Blood Count 6.70 K/uL Red Blood Count 3.13 M/uL Hemoglobin 9.7 g/dL Hematocrit 29.4 % Mean Corpuscular Volume 93.9 fL Mean Corpuscular Hemoglobin 31.0 pg Mean Corpuscular Hemoglobin Concent 33.0 g/dl Platelet Count 172 K/uL Mean Platelet Volume 9.5 fL Neutrophils (%) (Auto) 68.0 % Lymphocytes (%) (Auto) 13.6 % Monocytes (%) (Auto) 13.9 % Eosinophils (%) (Auto) 3.9 % Basophils (%) (Auto) 0.3 % Neutrophils # (Auto) 4.56 K/uL Lymphocytes # (Auto) 0.91 K/uL Monocytes # (Auto) 0.93 K/uL Eosinophils # (Auto) 0.26 K/uL Basophils # (Auto) 0.02 K/uL RDW Standard Deviation 47.9 fL RDW Coefficient of Variation 13.9 % Immature Granulocyte % (Auto) 0.3 % Immature Granulocyte # (Auto) 0.02 K/uL Sodium Level 143 mmol/L Potassium Level 3.9 mmol/L Chloride Level 111 mmol/L Carbon Dioxide Level 22 mmol/L Anion Gap 10.0 mmol/L Blood Urea Nitrogen 38 mg/dl Creatinine 1.80 mg/dl Est Creatinine Clear Calc Drug Dose 34.2 ml/min Estimated GFR () 31.6 Estimated GFR (Non- 27.2 BUN/Creatinine Ratio 21.3 Random Glucose 153 mg/dl Calcium Level 8.4 mg/dl Magnesium Level 1.8 mg/dl Bedside Glucose 161 mg/dl Date/Time Source Procedure Growth Status 11/08/16 05:30 Blood Blood Culture Pending Received 2/21/17 05:15 Blood Blood Culture Pending Received Assessment & Plan [id number]-not measuring is/os at this time since urinating well. creatinine has improved from 2.3 to 1.8. unclear what her true baseline creatinine is. creatinine was around 1.4 in 2013. had cyn from uti/nsaids. will stop the iv fluids and encourage pt to be oob to chair. ok from renal perspective to go home once medically cleared by hospitalist. repeat bmp in a week.
[2016-11-08] MEDS: CLONIDINE HCL 0.1 MG TAB PO SCH ×2 (08:07→21:29)
[2016-11-08] MEDS: DOCUSATE SODIUM 100 MG CAP PO SCH (08:08)
[2016-11-08] MEDS: METOPROLOL TARTRATE 25 MG TAB PO SCH ×2 (08:08→21:28)
[2016-11-08] MEDS: ATORVASTATIN 40 MG TAB PO SCH (08:09)
[2016-11-08] MEDS: RANITIDINE HCL 150 MG TAB PO SCH ×2 (08:09→21:28)
[2016-11-08] MEDS: ASPIRIN 81 MG ECTAB PO SCH (08:09)
[2016-11-08] MEDS: INSULIN ASPART 100 UNITS/ML 3 ML PEN SC SCH ×4 (08:12→21:30)
--- NOTE | 2016-11-08 11:06 | Progress Note ---
Internal Med Progress Note Date of Service: Nov 08, 2016. Provider Documentation: SUBJECTIVE: Patient is doing well. Denies any complaints- no nausea, vomiting, fever, chills, diarrhea, abdominal pain, flank pain, chest pain, SOB, cough. Tolerating PO well Ambulating well with walker OBJECTIVE: Vital Signs-as noted below EXAM : General Appearance:Obese, no apparent distress, AAO X 3 Head: Normocephalic, Atraumatic Eyes: Anicteric Neck: supple Respiratory/Chest: Normal breath sounds, CTA, No accessory muscle use Cardiovascular: S1, S2, No murmur Abdomen/GI:Soft, Non tender, Bowel sounds present Extremities- No edema Lab data as noted below. ASSESSMENT & PLAN: ASSESSMENT & PLAN: Patient is a 75 yr old female presented with weakness in lower extremities, found to have UTI and blood cx positive for GPB UTI: (Proteus Mirabilis/Pseudomonas) H/O recurrent UTIs -On IV Invanz (Day 2)--> change to IV Cefepime to cover both organisms per C/S results -Monitor while on cefepime as allergic to Amoxicillin but no hx of anaphylaxis ( reaction : scratching) ABNORMAL BLOOD CX -Blood cx x 1/2 bottles- GPB -? contaminant -Afebrile, no leucocytosis -Follow up SHAYY: Improving Likely secondary to UTI/NSAIDS Unknown baseline Cr: Currently on presentation 2.3, now down to 1.80. Last 1.4 in 2013, january this is her baseline -IV fluids discontinued per nephrology today -Recommends repeat BMP in 1 week post discharge. Cleared for discharge from nephrology point of view LOWER EXTREMITY WEAKNESS: Resolved Likely secondary to acute illness. This was her primary reason for ED visit -Improved clinically, no focal deficits and now back to baseline- ambulating well with walker -PT/OT -CT Head as below H/O CAD S/P CABG: Stable -continue aspirin, Lipitor, beta lcare. HYPERTENSION : Elevated Will order to repeat BP post medication administration -Continue clonidine and metoprolol -Valsartan on hold -monitor HYPERKALEMIA- Resolved -S/P Kayexalate -Monitor DM II: -A1C:7.0 -Continue ISS -Hold oral diabetic meds -Accu checks HYPOTHYROIDISM: -Continue Levothyroxine DVT Px: -Heparin SQ CODE STATUS: -Full code DISPOSITION PT - ordered Lives with her daughter. Ambulating with walker in room Possible discharge in AM, pending blood culture results PROCEDURES: CT Head: 1. 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 2. Hemorrhagic brain with attention to the pituitary and parasellar region is suggested. 3. Study of brain is otherwise negative. 4. Mild chronic small vessel change Vital Signs: Date Time Temp Pulse Resp B/P Pulse Ox O2 Delivery O2 Flow Rate FiO2 11/08/16 07:45 Room Air 11/08/16 07:32 36.2 95 20 171/84 96 Room Air 11/08/16 04:00 Room Air 11/08/16 03:25 36.6 80 17 149/63 94 Room Air 11/08/16 00:10 Room Air 11/07/16 23:38 36.6 80 17 145/60 93 Room Air 11/07/16 20:00 Room Air 11/07/16 19:27 37.0 90 18 141/67 91 Room Air 11/07/16 16:00 Room Air 11/07/16 15:25 36.6 85 16 141/68 93 Room Air 11/07/16 12:00 Room Air Lab Results: Results Past 24 Hours Test 11/07/16 11:26 11/07/16 16:44 11/07/16 20:20 11/08/16 05:15 Range/Units Bedside Glucose 135 120 165 70-90 mg/dl White Blood Count 6.70 4.8-10.8 K/uL Red Blood Count 3.13 4.2-5.4 M/uL Hemoglobin 9.7 12.0-16.0 g/dL Hematocrit 29.4 37-47 % Mean Corpuscular Volume 93.9 80-100 fL Mean Corpuscular Hemoglobin 31.0 25-34 pg Mean Corpuscular Hemoglobin Concent 33.0 32-36 g/dl Platelet Count 172 130-400 K/uL Mean Platelet Volume 9.5 7.4-10.4 fL Neutrophils (%) (Auto) 68.0 % Lymphocytes (%) (Auto) 13.6 % Monocytes (%) (Auto) 13.9 % Eosinophils (%) (Auto) 3.9 % Basophils (%) (Auto) 0.3 % Neutrophils # (Auto) 4.56 1.4-6.5 K/uL Lymphocytes # (Auto) 0.91 1.2-3.4 K/uL Monocytes # (Auto) 0.93 0.11-0.59 K/uL Eosinophils # (Auto) 0.26 0-0.5 K/uL Basophils # (Auto) 0.02 0-0.2 K/uL RDW Standard Deviation 47.9 36.4-46.3 fL RDW Coefficient of Variation 13.9 11.5-14.5 % Immature Granulocyte % (Auto) 0.3 % Immature Granulocyte # (Auto) 0.02 0.00-0.02 K/uL Sodium Level 143 136-145 mmol/L Potassium Level 3.9 3.5-5.1 mmol/L Chloride Level 111 98-107 mmol/L Carbon Dioxide Level 22 21-32 mmol/L Anion Gap 10.0 3-11 mmol/L Blood Urea Nitrogen 38 7-18 mg/dl Creatinine 1.80 0.60-1.20 mg/dl Est Creatinine Clear Calc Drug Dose 34.2 ml/min Estimated GFR () 31.6 Estimated GFR (Non- 27.2 BUN/Creatinine Ratio 21.3 10-20 Random Glucose 153 70-99 mg/dl Calcium Level 8.4 8.5-10.1 mg/dl Magnesium Level 1.8 1.8-2.4 mg/dl Test 11/08/16 06:25 Range/Units Bedside Glucose 161 70-90 mg/dl Microbiology Results 11/08/16 Blood Culture, Received Pending 11/08/16 Blood Culture, Received Pending
[2016-11-08] MEDS: CEFEPIME IV 1,000 MG in DEXTROSE 5% 100ML 100 ML IV SCH ×2 (12:51→23:56)
[2016-11-09] VITALS (12 sets, daily range): BP systolic 126–189; BP diastolic 65–82; PULSE 73–86; TEMP 36.4–36.7; O2SAT 94–98
[2016-11-09] MEDS: LEVOTHYROXINE 100 MCG TAB PO SCH (05:36)
[2016-11-09] MEDS: HEPARIN SOD 5000 UNIT/0.5 ML CARP SQ SCH ×2 (05:37→14:41)
[2016-11-09 06:41] LABS: BASO % 0.3 %; BASO ABS # 0.02 K/uL (0-0.2); COMPLETE YES; EOS % 4.7 %; HEMATOCRIT 30.7 % (37-47); IG% 0.5 %; LYMPH % 14.8 %; LYMPH ABS # 0.86 K/uL (1.2-3.4); MEAN CELL VOLUME 92.2 fL (80-100); MEAN CORPUSCULAR HEMOGLOBIN 30.3 pg (25-34); MEAN CORPUSCULAR HGB CONC 32.9 g/dl (32-36); MEAN PLATELET VOLUME 9.2 fL (7.4-10.4); MONO % 11.9 %; NEUT % 67.8 %; PLATELET COUNT 193 K/uL (130-400); RED BLOOD COUNT 3.33 M/uL (4.2-5.4)
[2016-11-09] MEDS: INSULIN ASPART 100 UNITS/ML 3 ML PEN SC SCH ×3 (07:00→16:54)
[2016-11-09 07:18] LABS: BUN/CREATININE RATIO 20.6 (10-20); CALCIUM 8.5 mg/dl (8.5-10.1); CREATININE 1.5 mg/dl (0.60-1.20); MAGNESIUM 1.8 mg/dl (1.8-2.4)
--- NOTE | 2016-11-09 07:47 | Nephrology Progress Note ---
Nephrology Progress Note Date of Service: Nov 09, 2016. Subjective 75 yo female with uti/cyn/generalized weakness. pt doing much better. eating well. no sob. feels good. interested in going home today if possible. Objective Date Time Temp Pulse Resp B/P Pulse Ox O2 Delivery O2 Flow Rate FiO2 11/09/16 07:19 36.6 82 20 189/82 95 Room Air 11/09/16 04:10 36.4 75 18 163/69 94 Nasal Cannula 11/09/16 04:00 94 Room Air 11/09/16 00:15 94 Room Air 11/08/16 23:25 36.7 87 18 148/73 94 Room Air 11/08/16 20:15 97 Room Air 11/08/16 19:55 36.5 74 18 129/62 97 Room Air 11/08/16 16:00 65 Room Air 11/08/16 16:00 98 Room Air 11/08/16 15:48 36.5 65 98 137/63 98 Room Air 11/08/16 12:00 97 Room Air 11/08/16 12:00 36.5 68 18 114/57 97 Room Air 11/08/16 07:45 Room Air Physical Exam: General-aaox3, obese Eyes-no scleral icterus ENT-mmm Neck-supple Lungs-cta Heart-regular Abdomen-bs+ s/nt/nd Extremities-no edema Neuro-nonfocal Current Inpatient Medications Medications (Trade) Dose Ordered Sig/Mc Route Start Time Stop Time Status Last Admin Dose Admin Heparin Sodium (Porcine) (Heparin Sq 5000 Unit/0.5ml) 5,000 unit Q8 SQ 11/07/16 07:00 12/07/16 06:59 11/09/16 05:37 5,000 UNIT Acetaminophen (Tylenol Tab) 650 mg Q4H PRN PO 11/06/16 21:30 12/06/16 21:29 Al Hydrox/Mg Hydrox/Simethicone (Maalox Max Susp) 15 ml Q4H PRN PO 11/06/16 21:30 12/06/16 21:29 Magnesium Hydroxide (Milk Of Magnesia Susp) 30 ml Q12H PRN PO 11/06/16 21:30 12/06/16 21:29 Ondansetron HCl (Zofran Inj) 4 mg Q6H PRN IV 11/06/16 21:30 12/06/16 21:29 Nitroglycerin (Nitrostat Tab) 0.4 mg UD PRN SL 11/06/16 21:30 12/06/16 21:29 Aspirin (Ecotrin Tab) 81 mg DAILY PO 11/07/16 09:00 12/07/16 08:59 11/08/16 08:09 81 MG Atorvastatin Calcium (Lipitor Tab) 40 mg DAILY PO 11/07/16 09:00 12/07/16 08:59 11/08/16 08:09 40 MG Docusate Sodium (coLACE CAP) 10 mg DAILY PO 11/07/16 09:00 12/07/16 08:59 11/08/16 08:08 100 MG Levothyroxine Sodium (Synthroid Tab) 100 mcg DAILYBB PO 11/07/16 06:00 12/07/16 05:59 11/09/16 05:36 100 MCG Ranitidine HCl (zANTac TAB) 150 mg BID PO 11/07/16 09:00 12/07/16 08:59 11/08/16 21:28 150 MG Clonidine HCl (Catapres Tab) 0.2 mg BID PO 11/07/16 09:00 12/07/16 08:59 11/08/16 21:29 0.2 MG Insulin Aspart (novoLOG ASPART) SLIDING SCALE G... ACHS SC 11/07/16 07:00 12/07/16 06:59 11/08/16 21:30 1 UNITS Glucose (Glucose 40% Gel) 15-30 GRAMS 15 GRAMS... UD PRN PO 11/06/16 23:45 12/06/16 23:44 Glucose (Glucose Chew Tab) 4-8 Tablets 4 Tabl... UD PRN PO 11/06/16 23:45 12/06/16 23:44 Dextrose (Dextrose 50% 50ML Syringe) 25-50ML OF 50% DW IV FOR... UD PRN IV 11/06/16 23:45 12/06/16 23:44 Glucagon (Glucagon Inj) 1 mg UD PRN SQ 11/06/16 23:45 12/06/16 23:44 Metoprolol Tartrate 25 mg 25 mg BID PO 11/07/16 09:00 12/07/16 08:59 11/08/16 21:28 25 MG Cefepime HCl/ Dextrose (Maxipime IV/D5 100ml) 111.3 ml @ 200 mls/hr Q12H IV 11/08/16 12:00 11/18/16 11:59 11/08/16 23:56 200 MLS/HR Last 24 Hours Test 11/08/16 11:21 11/08/16 16:19 11/08/16 20:16 11/09/16 05:55 Bedside Glucose 176 mg/dl 142 mg/dl 161 mg/dl White Blood Count 5.80 K/uL Red Blood Count 3.33 M/uL Hemoglobin 10.1 g/dL Hematocrit 30.7 % Mean Corpuscular Volume 92.2 fL Mean Corpuscular Hemoglobin 30.3 pg Mean Corpuscular Hemoglobin Concent 32.9 g/dl Platelet Count 193 K/uL Mean Platelet Volume 9.2 fL Neutrophils (%) (Auto) 67.8 % Lymphocytes (%) (Auto) 14.8 % Monocytes (%) (Auto) 11.9 % Eosinophils (%) (Auto) 4.7 % Basophils (%) (Auto) 0.3 % Neutrophils # (Auto) 3.93 K/uL Lymphocytes # (Auto) 0.86 K/uL Monocytes # (Auto) 0.69 K/uL Eosinophils # (Auto) 0.27 K/uL Basophils # (Auto) 0.02 K/uL RDW Standard Deviation 46.4 fL RDW Coefficient of Variation 13.8 % Immature Granulocyte % (Auto) 0.5 % Immature Granulocyte # (Auto) 0.03 K/uL Sodium Level 142 mmol/L Potassium Level 4.0 mmol/L Chloride Level 108 mmol/L Carbon Dioxide Level 22 mmol/L Anion Gap 12.0 mmol/L Blood Urea Nitrogen 31 mg/dl Creatinine 1.50 mg/dl Est Creatinine Clear Calc Drug Dose 40.5 ml/min Estimated GFR () 39.4 Estimated GFR (Non- 34.0 BUN/Creatinine Ratio 20.6 Random Glucose 148 mg/dl Calcium Level 8.5 mg/dl Magnesium Level 1.8 mg/dl Test 11/09/16 06:29 Bedside Glucose 157 mg/dl Assessment & Plan [id number]- creatinine has improved from 2.3 to 1.5. creatinine was about 1.3 to 1.5 in 2013 so likely back to baseline. will defer to Dr. Acevedo her pcp as to whether to establish with nephrology as outpatient or not.
[2016-11-09] MEDS: CLONIDINE HCL 0.1 MG TAB PO SCH (09:22)
[2016-11-09] MEDS: DOCUSATE SODIUM 100 MG CAP PO SCH (09:23)
[2016-11-09] MEDS: RANITIDINE HCL 150 MG TAB PO SCH (09:24)
[2016-11-09] MEDS: ATORVASTATIN 40 MG TAB PO SCH (09:24)
[2016-11-09] MEDS: METOPROLOL TARTRATE 25 MG TAB PO SCH (09:24)
[2016-11-09] MEDS: ASPIRIN 81 MG ECTAB PO SCH (09:24)
--- NOTE | 2016-11-09 10:16 | Progress Note ---
Internal Med Progress Note Date of Service: Nov 09, 2016. Provider Documentation: SUBJECTIVE: Patient is doing well and eager to be discharged home Denies any complaints- no nausea, vomiting, fever, chills, diarrhea, abdominal pain, flank pain, chest pain, SOB, cough. Tolerating PO well Ambulating well OBJECTIVE: Vital Signs-as noted below EXAM : General Appearance:Obese, no apparent distress, AAO X 3 Head: Normocephalic, Atraumatic Eyes: Anicteric Neck: supple Respiratory/Chest: Normal breath sounds, CTA, No accessory muscle use Cardiovascular: S1, S2, No murmur Abdomen/GI:Soft, Non tender, Bowel sounds present Extremities- No edema Lab data as noted below. ASSESSMENT & PLAN: ASSESSMENT & PLAN: Patient is a 75 yr old female presented with weakness in lower extremities, found to have UTI and blood cx positive for GPB UTI: (Proteus Mirabilis/Pseudomonas) H/O recurrent UTIs -On IV Invanz (Day 2)--> changed to IV Cefepime to cover both organisms per C/S results on 11/08/16 (Tolerated cephalosporins well) -Monitor while on cefepime as allergic to Amoxicillin but no hx of anaphylaxis ( reaction : scratching)- tolerated well OUTPATIENT RX: Keflex 500 mg po q 12 hours for Proteus and Ciprofloxacin 500 mg q 12 hours for Pseudomonas x 4 more days to complete course of 7 days of antibiotics ABNORMAL BLOOD CX (Bacillus) -Blood cx x 1/2 bottles- bacillus not anthracis- contaminant -Afebrile, no leucocytosis SHAYY: Resolved, likely near her baseline now Likely secondary to UTI/NSAIDS Unknown baseline Cr: Currently on presentation 2.3, now down to 1.50. Last 1.4 in 2013, so likely this is her baseline -S/P IVF -Recommends repeat BMP in 1 week post discharge. Cleared for discharge from nephrology point of view LOWER EXTREMITY WEAKNESS: Resolved Likely secondary to acute illness. This was her primary reason for ED visit -Improved clinically, no focal deficits and now back to baseline- ambulating well with walker -PT/OT- able to walk without assistance -CT Head as below H/O CAD S/P CABG: Stable -continue aspirin, Lipitor, beta clare. HYPERTENSION : Elevated Will order to repeat BP post medication administration -Continue clonidine and metoprolol -Ok to restart valsartan which was held due to elevated creatinine -monitor HYPERKALEMIA- Resolved -S/P Kayexalate DM II: -A1C:7.0 -Continue ISS -Hold oral diabetic meds -Accu checks HYPOTHYROIDISM: -Continue Levothyroxine DVT Px: -Heparin SQ CODE STATUS: -Full code DISPOSITION PT - ordered - Cleared Lives with her daughter. Ambulating well OK to discharge home today Vital Signs: Date Time Temp Pulse Resp B/P Pulse Ox O2 Delivery O2 Flow Rate FiO2 11/09/16 10:01 95 Room Air 11/09/16 08:00 97 Room Air 11/09/16 07:44 36.6 86 20 164/75 97 Room Air 11/09/16 07:19 36.6 82 20 189/82 95 Room Air 11/09/16 04:10 36.4 75 18 163/69 94 Nasal Cannula 11/09/16 04:00 94 Room Air 11/09/16 00:15 94 Room Air 11/08/16 23:25 36.7 87 18 148/73 94 Room Air 11/08/16 20:15 97 Room Air 11/08/16 19:55 36.5 74 18 129/62 97 Room Air 11/08/16 16:00 65 Room Air 11/08/16 16:00 98 Room Air 11/08/16 15:48 36.5 65 98 137/63 98 Room Air 11/08/16 12:00 97 Room Air 11/08/16 12:00 36.5 68 18 114/57 97 Room Air Lab Results: Results Past 24 Hours Test 11/08/16 11:21 11/08/16 16:19 11/08/16 20:16 11/09/16 05:55 Range/Units Bedside Glucose 176 142 161 70-90 mg/dl White Blood Count 5.80 4.8-10.8 K/uL Red Blood Count 3.33 4.2-5.4 M/uL Hemoglobin 10.1 12.0-16.0 g/dL Hematocrit 30.7 37-47 % Mean Corpuscular Volume 92.2 80-100 fL Mean Corpuscular Hemoglobin 30.3 25-34 pg Mean Corpuscular Hemoglobin Concent 32.9 32-36 g/dl Platelet Count 193 130-400 K/uL Mean Platelet Volume 9.2 7.4-10.4 fL Neutrophils (%) (Auto) 67.8 % Lymphocytes (%) (Auto) 14.8 % Monocytes (%) (Auto) 11.9 % Eosinophils (%) (Auto) 4.7 % Basophils (%) (Auto) 0.3 % Neutrophils # (Auto) 3.93 1.4-6.5 K/uL Lymphocytes # (Auto) 0.86 1.2-3.4 K/uL Monocytes # (Auto) 0.69 0.11-0.59 K/uL Eosinophils # (Auto) 0.27 0-0.5 K/uL Basophils # (Auto) 0.02 0-0.2 K/uL RDW Standard Deviation 46.4 36.4-46.3 fL RDW Coefficient of Variation 13.8 11.5-14.5 % Immature Granulocyte % (Auto) 0.5 % Immature Granulocyte # (Auto) 0.03 0.00-0.02 K/uL Sodium Level 142 136-145 mmol/L Potassium Level 4.0 3.5-5.1 mmol/L Chloride Level 108 98-107 mmol/L Carbon Dioxide Level 22 21-32 mmol/L Anion Gap 12.0 3-11 mmol/L Blood Urea Nitrogen 31 7-18 mg/dl Creatinine 1.50 0.60-1.20 mg/dl Est Creatinine Clear Calc Drug Dose 40.5 ml/min Estimated GFR () 39.4 Estimated GFR (Non- 34.0 BUN/Creatinine Ratio 20.6 10-20 Random Glucose 148 70-99 mg/dl Calcium Level 8.5 8.5-10.1 mg/dl Magnesium Level 1.8 1.8-2.4 mg/dl Test 11/09/16 06:29 Range/Units Bedside Glucose 157 70-90 mg/dl
--- NOTE | 2016-11-09 10:20 | Discharge Instructions ---
Discharge Instructions Admission Reason for Admission: Arf,Uti Discharge Discharge Diagnosis / Problem: 1. UTI (Pseudomonas/Proteus Mirabilis) 2. Acute kidney injury Discharge Goals Goal(s): Diagnostic testing, Therapeutic intervention Activity Recommendations Activity Limitations: resume your previous activity . Instructions / Follow-Up Instructions / Follow-Up MEDICATION CHANGES: 1. Ciprofloxacin 500 mg PO Q 12 hours x 4 more days to complete course of 7 days of antibiotics for UTI 2. Keflex 500 mg Q 12 hours x 4 more days to complete course of 7 days of antibiotics for UTI FOLLOW UP 1. With your PCP Dr Acevedo in 1 week- need to call for follow up appt MONITOR -BMP to be repeated in 1 week to check creatinine levels. Monitor while being on metformin, valsartan -BP as elevated while in hospital Current Hospital Diet Patient's current hospital diet: AHA Diet (Heart Healthy), Diabetes Type 2 Diet Discharge Diet Recommended Diet: AHA Diet (Heart Healthy), Low Sodium Diet (2gm Na), Diabetes Type 2 Diet Pending Studies Studies pending at discharge: no Laboratory Results Hemoglobin A1c Test 11/07/16 05:45 Range/Units Estimated Average Glucose 154 mg/dl Hemoglobin A1c 7.0 H 4.5-5.6 % Medical Emergencies . Who to Call and When: Medical Emergencies: If at any time you feel your situation is an emergency, please call 911 immediately. . Non-Emergent Contact Non-Emergency issues call your: Primary Care Provider . . "Provider Documentation" section prepared by Erica Phipps. VTE Core Measure Inpt VTE Proph given/why not?: SCD's, Contraindicated (re: thrombocytopenia)
[2016-11-09] MEDS ORDERED: CPR500 PO (10:22)
[2016-11-09] MEDS ORDERED: CEPH500C2 PO (10:22)
--- NOTE | 2016-11-09 10:24 | Discharge Summary ---
Discharge Summary Date of Service Nov 09, 2016. Discharge Summary Admission Date: Nov 06, 2016 at 21:25 Discharge Date: Nov 09, 2016 Discharge Disposition: Home Principal Diagnosis: 1. UTI (Proteus Mirabilis/Pseudomonas) 2. SHAYY on probable CKD Secondary Diagnoses/Problems: 1. Hypertension 2. HX of CAD 3. DM-2 4. Hypothyroidism 5. Obesity Procedures: Tele monitoring IV antibiotics CXR CT head Consultations: Nephrology Pending Studies/Follow-Up: Instructions / Follow-Up MEDICATION CHANGES: 1. Ciprofloxacin 500 mg PO Q 12 hours x 4 more days to complete course of 7 days of antibiotics for UTI 2. Keflex 500 mg Q 12 hours x 4 more days to complete course of 7 days of antibiotics for UTI FOLLOW UP 1. With your PCP Dr Acevedo in 1 week- need to call for follow up appt MONITOR -BMP to be repeated in 1 week to check creatinine levels. Monitor while being on metformin, valsartan -BP as elevated while in hospital Medication Reconciliation New Medications: Cephalexin Monohydrate (Keflex) 500 Mg Cap 500 MG PO BID for 4 Days, #8 CAP Ciprofloxacin (Ciprofloxacin HCl) 500 Mg Tab 500 MG PO bid for 4 Days, #8 TAB Continued Medications: Acarbose (Precose) 25 Mg Tab 25 MG PO TID, TAB Aspirin (Aspirin Ec) 81 Mg Tab 81 MG PO DAILY Atorvastatin (Lipitor) 40 Mg Tab 40 MG PO DAILY, TAB Cholecalciferol (Vitamin D-3) 400 Unit Tab Unknown Dose PO DAILY Clonidine Hcl (Catapres) 0.2 Mg Tab 0.2 MG PO BID, TAB Cyanocobalamin (Vitamin B-12) 100 Mcg Tab Unknown Dose PO DAILY, TAB Docusate Sodium (Stool Softener) 100 Mg Cap 10 MG PO DAILY Ferrous Fumarate (Iron) 18 Mg Tab 65 MG PO DAILY Glipizide (Glucotrol) 5 Mg Tab 5 MG PO DAILY, TAB Levothyroxine Sodium (Synthroid) 100 Mcg Tab 100 MCG PO DAILY, TAB Ranitidine Hcl (Zantac) 150 Mg Tab 150 MG PO BID, TAB Sitagliptin-Metformin Hcl (Janumet) 1 Tab Tab 1 TAB PO BID for 90 Days, #180 TAB 3 Refills Valsartan (Diovan) 160 Mg Tab 160 MG PO DAILY, TAB [metoprolol ] () 25 MG PO BID pt unable to verify metoprolol 25mg is all that family knows, Discontinued Medications: Potassium Ext Rel (Klor-Con) 20 Meq Tabcr 20 MEQ PO BID, TAB Admission Information HPI (per Admitting provider): HISTORY OF PRESENT ILLNESS: This is a 75-year-old female with past medical history significant for CAD, status post stent, diabetes, hypertension, hypothyroidism, presents with weakness in lower extremities, shakiness, chills. The patient says she is having chills for the last few days, but today while they were having dinner at [employer], she suddenly became shaky and also weakness in the lower extremities and she was brought into the ER. She has had temp spike in the ER and mildly tachycardic, currently resting comfortably and blood pressure stable at this time. She was a hard stick and they could not get the IV line but they are trying again. The patient denies any chest pain, no shortness of breath, no cough, no headaches, no blurred vision, no nausea, no vomiting, no abdominal pain. Usually constipated. Normal bladder movements. Appetite is okay. She lives with her daughter and walks with a cane at home. Hospital Course ASSESSMENT & PLAN: Patient is a 75 yr old female presented with weakness in lower extremities, found to have UTI and blood cx positive for GPB UTI: (Proteus Mirabilis/Pseudomonas) H/O recurrent UTIs -On IV Invanz (Day 2)--> changed to IV Cefepime to cover both organisms per C/S results on 11/08/16 (Tolerated cephalosporins well) -Monitor while on cefepime as allergic to Amoxicillin but no hx of anaphylaxis ( reaction : scratching)- tolerated well OUTPATIENT RX: Keflex 500 mg po q 12 hours for Proteus and Ciprofloxacin 500 mg q 12 hours for Pseudomonas x 4 more days to complete course of 7 days of antibiotics ABNORMAL BLOOD CX (Bacillus) -Blood cx x 1/2 bottles- bacillus not anthracis- contaminant -Afebrile, no leucocytosis SHAYY: Resolved, likely near her baseline now Likely secondary to UTI/NSAIDS Unknown baseline Cr: Currently on presentation 2.3, now down to 1.50. Last 1.4 in 2013, so likely this is her baseline -S/P IVF -Recommends repeat BMP in 1 week post discharge. Cleared for discharge from nephrology point of view LOWER EXTREMITY WEAKNESS: Resolved Likely secondary to acute illness. This was her primary reason for ED visit -Improved clinically, no focal deficits and now back to baseline- ambulating well with walker -PT/OT- able to walk without assistance -CT Head as below H/O CAD S/P CABG: Stable -continue aspirin, Lipitor, beta clare. HYPERTENSION : Elevated Will order to repeat BP post medication administration -Continue clonidine and metoprolol -Ok to restart valsartan which was held due to elevated creatinine -monitor HYPERKALEMIA- Resolved -S/P Kayexalate DM II: -A1C:7.0 -Continue ISS -Hold oral diabetic meds -Accu checks HYPOTHYROIDISM: -Continue Levothyroxine DVT Px: -Heparin SQ CODE STATUS: -Full code DISPOSITION PT - ordered - Cleared Lives with her daughter. Ambulating well OK to discharge home today Total time spent on discharge = 38 minutes This includes examination of the patient, discharge planning, medication reconciliation, and communication with other providers. Discharge Instructions Discharge Diagnosis / Problem: 1. UTI (Pseudomonas/Proteus Mirabilis) 2. Acute kidney injury Discharge Goals Goal(s): Diagnostic testing, Therapeutic intervention Activity Recommendations Activity Limitations: resume your previous activity . Instructions / Follow-Up Instructions / Follow-Up MEDICATION CHANGES: 1. Ciprofloxacin 500 mg PO Q 12 hours x 4 more days to complete course of 7 days of antibiotics for UTI 2. Keflex 500 mg Q 12 hours x 4 more days to complete course of 7 days of antibiotics for UTI FOLLOW UP 1. With your PCP Dr Acevedo in 1 week- need to call for follow up appt MONITOR -BMP to be repeated in 1 week to check creatinine levels. Monitor while being on metformin, valsartan -BP as elevated while in hospital Current Hospital Diet Patient's current hospital diet: AHA Diet (Heart Healthy), Diabetes Type 2 Diet Discharge Diet Recommended Diet: AHA Diet (Heart Healthy), Low Sodium Diet (2gm Na), Diabetes Type 2 Diet Pending Studies Studies pending at discharge: no Laboratory Results Hemoglobin A1c Test 11/07/16 05:45 Range/Units Estimated Average Glucose 154 mg/dl Hemoglobin A1c 7.0 H 4.5-5.6 % Medical Emergencies . Who to Call and When: Medical Emergencies: If at any time you feel your situation is an emergency, please call 911 immediately. . Non-Emergent Contact Non-Emergency issues call your: Primary Care Provider . . "Provider Documentation" section prepared by Erica Phipps. VTE Core Measure Inpt VTE Proph given/why not?: SCD's, Contraindicated (re: thrombocytopenia)
[2016-11-09] MEDS: CEFEPIME IV 1,000 MG in DEXTROSE 5% 100ML 100 ML IV SCH (12:48)
[2016-11-09] MEDS ORDERED: CEPHALEXIN MONOHYDRATE 500 MG CAP PO SCH ×2 (13:30→21:00)
[2016-11-09] MEDS ORDERED: CIPROFLOXACIN 500 MG TAB PO SCH ×2 (13:30→21:00)
== END 2016-11-09 17:45 | disposition home or self-care (01) | DRG 683 ==
LOC: ENRESERVTM → CANRESERV → ENRESERVDT → EDBD 15:51 → C.EDB 15:52 → C.2E 21:25
PROVIDERS: ADMIT Internal Medicine; ATTEND Internal Medicine
DX: N17.9 Acute kidney failure, unspecified (principal); N39.0 Urinary tract infection, site not specified; Z68.41 Body mass index [BMI] 40.0-44.9, adult; T39.395A Adverse effect of other nonsteroidal anti-inflammatory drugs [NSAID], initial encounter; B96.4 Proteus (mirabilis) (morganii) as the cause of diseases classified elsewhere; B96.5 Pseudomonas (aeruginosa) (mallei) (pseudomallei) as the cause of diseases classified elsewhere; E87.5 Hyperkalemia; R29.898 Other symptoms and signs involving the musculoskeletal system; R60.0 Localized edema; E66.01 Morbid (severe) obesity due to excess calories; N18.9 Chronic kidney disease, unspecified; I13.10 Hypertensive heart and chronic kidney disease without heart failure, with stage 1 through stage 4 chronic kidney disease, or unspecified chronic kidney disease; I25.10 Atherosclerotic heart disease of native coronary artery without angina pectoris; E03.9 Hypothyroidism, unspecified; E11.9 Type 2 diabetes mellitus without complications; Z51.81 Encounter for therapeutic drug level monitoring; Z79.899 Other long term (current) drug therapy; Z79.82 Long term (current) use of aspirin; Z79.84 Long term (current) use of oral hypoglycemic drugs; Z87.440 Personal history of urinary (tract) infections; Z95.1 Presence of aortocoronary bypass graft; Z83.3 Family history of diabetes mellitus; Z82.49 Family history of ischemic heart disease and other diseases of the circulatory system; Z82.3 Family history of stroke